=== PATIENT | male | born 1955 | race Hispanic/Latino ===

== ENCOUNTER 2018-07-08 22:58 | Emergency (ER) | payer MEDICAID, MEDICARE ==
[2018-07-08 23:29] VITALS: PULSE 87; RESP 18; TEMP 98; O2SAT 98
--- NOTE | 2018-07-09 00:14 | ED PDOC ---
Lower Extremity Pain/Injury Time Seen by Provider: 07/08/18 23:54 Chief Complaint (Nursing): Wound Check Chief Complaint (Provider): leg pain History Per: Patient History/Exam Limitations: no limitations Onset/Duration Of Symptoms: Days (weeks), Waxing/Waning Current Symptoms Are (Timing): Still Present Additional Complaint(s): 62 y/o nondomiciled male presents for evaluation of ongoing swelling to bilateral legs, left greater than right x weeks. Patient states he might have bed bugs and has been scratching legs to the point where the bleed and scab over. Denies fever, nausea/vomiting, chest pain, shortness of breath, palpitations, numbness/weakness lower extremities. Patient was sent to decon shower prior to coming in to ED exam room Past Medical History Reviewed: Historical Data, Nursing Documentation, Vital Signs Vital Signs: Last Vital Signs Temp 98 F 07/08/18 23:26 Pulse 87 07/08/18 23:26 Resp 18 07/08/18 23:26 BP 150/81 07/08/18 23:26 Pulse Ox 98 07/08/18 23:26 - Medical History PMH: No Chronic Diseases - Surgical History Surgical History: No Surg Hx - Family History Family History: States: No Known Family Hx - Living Arrangements Living Arrangements: With Family - Home Medications Home Medications: Ambulatory Orders Medication Instructions Recorded Ibuprofen [Motrin] 600 mg PO Q8 #20 tab 11/01/14 Cephalexin [Keflex] 500 mg PO Q6 #28 capsule 07/09/18 - Allergies Allergies/Adverse Reactions: Allergies Allergy/AdvReac Type Severity Reaction Status Date / Time No Known Allergies Allergy Verified 07/08/18 23:26 Review of Systems ROS Statement: Except As Marked, All Systems Reviewed And Found Negative Musculoskeletal: Positive for: Leg Pain Physical Exam - Reviewed Nursing Documentation Reviewed: Yes Vital Signs Reviewed: Yes - Physical Exam Appears: Positive for: Well, Non-toxic, No Acute Distress Cardiovascular/Chest: Positive for: Regular Rate, Rhythm Respiratory: Positive for: Normal Breath Sounds Pulses-Dorsalis Pedis (L): 2+ Pulses-Dorsalis Pedis (R): 2+ Pulses-Post. Tibialis (L): 2+ Pulses-Post. Tibialis (R): 2+ Extremity: Positive for: Normal ROM, Swelling (2+ pitting edema B/L lower extremities. left lower extremity erythematous with chronic-appearing posterior calf ulceration, superficial. No drainage. ) Neurologic/Psych: Positive for: Alert, Oriented (x3) - Laboratory Results Result Diagrams: 07/09/18 01:10 07/09/18 01:10 - ECG O2 Sat by Pulse Oximetry: 98 - Progress ED Course And Treament: -cbc -cmp -lactic acid -venous duplex bilateral lower extremity Bilateral lower extremity venous duplex. Indication: Redness, scaling, swelling bilat legs. Findings: Real-time ultrasound images of the deep venous system with Doppler evaluation. Normal compression, spontaneity and augmentation. Normal color Doppler. No intraluminal thrombus is seen. IMPRESSION: No evidence of deep venous thrombosis. Patient educated on findings, discharged with rx Keflex Advised follow up wound care center Return precautions given Disposition - Clinical Impression Clinical Impression: Cellulitis of left leg, Infestation by bed bug - Patient ED Disposition Is Patient to be Admitted: No Counseled Patient/Family Regarding: Studies Performed, Diagnosis, Need For Fo llowup, Rx Given - Disposition Referrals: [facility] [Outside] [facility] [place] [Outside] Disposition: Routine/Home Disposition Time: 03:41 Condition: IMPROVED Prescriptions: Cephalexin [Keflex] 500 mg PO Q6 #28 capsule Instructions: Cellulitis and Erysipelas (Skin Infections), Bedbugs
[2018-07-09 01:18] LABS: BASO # 0.1 K/uL (0.0-0.2); BASO % 1.1 % (0.0-2.0); EOS % 11.6 % (0.0-4.0); HEMOGLOBIN 11.2 g/dL (12.0-18.0); LYMPH # 2.2 K/uL (1.0-4.3); LYMPH % 26.2 % (20.0-40.0); MEAN CELL VOLUME 87.2 fl (80.0-94.0); MEAN CORPUSCULAR HEMOGLOBIN 29.2 pg (27.0-31.0); MEAN CORPUSCULAR HGB CONC 33.4 g/dL (33.0-37.0); MEAN PLATELET VOLUME 8.3 fl (7.2-11.7); MONO # 0.7 K/uL (0.0-0.8); MONO % 8.8 % (0.0-10.0); NEUT # 4.4 K/uL (1.8-7.0); NEUT % 52.3 % (50.0-75.0); RBC 3.84 Mil/uL (4.40-5.90); WHITE BLOOD COUNT 8.5 K/uL (4.8-10.8)
[2018-07-09 01:29] LABS: ALBUMIN 3.7 g/dL (3.5-5.0); ALT/SGPT 29 U/L (21-72); AST/SGOT 20 U/L (17-59); BLOOD UREA NITROGEN 18 mg/dl (9-20); CALCIUM 8.8 mg/dL (8.4-10.2); GFR NON-AFRICAN AMERICAN > 60
[2018-07-09 01:37] LABS: B-TYPE NATRIURETIC PEPTIDE 707 pg/ml (0-900)
[2018-07-09 06:10] VITALS: BP 129/73
--- NOTE | 2018-07-09 12:49 | US ---
Date of service: 07/09/2018 PROCEDURE: Bilateral lower extremity venous duplex Doppler. HISTORY: redness, swelling COMPARISON: None available. TECHNIQUE: Bilateral common femoral, superficial femoral, popliteal and posterior tibial veins were evaluated. Flow was assessed with color Doppler, compressibility, assessment of phasic flow and augmentation response. FINDINGS: COMMON FEMORAL VEIN: Right CFV: Unremarkable. Left CFV: Unremarkable. SUPERFICIAL FEMORAL VEIN: Right SFV: Unremarkable. Left SFV: Unremarkable. POPLITEAL VEIN: Right Popliteal: Unremarkable. Left Popliteal: Unremarkable. POSTERIOR TIBIAL VEIN: Right PTV: Unremarkable. Left PTV: Unremarkable. OTHER FINDINGS: None. IMPRESSION: No evidence of deep venous thrombosis. A preliminary report was provided by [employer].
== END 2018-07-09 06:08 | disposition home or self-care (01) ==
LOC: H.ER 22:58
DX: L03.116 Cellulitis of left lower limb (principal); B88.8 Other specified infestations